=== PATIENT | female | born 1970 | race Caucasian/White ===

== ENCOUNTER → 2023-12-21 14:02 | Outpatient (REF) | payer BC, SELFPAY | LOC: WDC 14:02 | PROVIDERS: ATTENDING PHYSICIAN Physician Assistant Medical | DX: Z12.31 Encounter for screening mammogram for malignant neoplasm of breast (principal) | CPT/HCPCS: 77063; 77067 ==

== ENCOUNTER → 2024-03-22 09:25 | Outpatient (REF) | payer BC, SELFPAY | LOC: RAD 09:25 | PROVIDERS: ATTENDING PHYSICIAN Advanced Practice Midwife; FAMILY PHYSICIAN Physician Assistant Medical; REFERRING PHYSICIAN Physician Assistant Medical | DX: N92.0 Excessive and frequent menstruation with regular cycle (principal); M25.562 Pain in left knee; M25.512 Pain in left shoulder | CPT/HCPCS: 73030; 73564; 76830; 76856 ==

== ENCOUNTER → 2024-07-09 08:27 | Outpatient (REF) | payer BC, SELFPAY ==
[2024-07-09 09:26] LABS: % Basophils 0.6 % (0-2); % Eosinophils 1.9 % (0-6); % Immature Granulocytes 0.2 % (0-0.5); % Lymphocytes 28.3 % (20.5-51.1); % Monocytes 7.5 % (1.7-9.3); % Neutrophils 61.5 % (42.2-75.2); Absolute Eosinophils 0.1 10^3/uL (0-0.7); Absolute Lymphocytes 1.8 10^3/uL (1.2-3.4); Absolute Monocytes 0.5 10^3/uL (0.1-0.6); Absolute Neutrophils 3.9 10^3/uL (1.4-6.5); Hematocrit 40.3 % (37.0-47.0); Hemoglobin 13.1 g/dL (12.0-16.0); Mean Corp Hgb Conc. 32.5 g/dL (33.0-37.0); Mean Corpuscular Hgb 27.5 pg (27.0-31.0); Mean Corpuscular Volume 84.5 fL (81.0-99.0); Mean Platelet Volume 10.4 fL (7.4-10.4); Nucleated Red Blood Cells % 0 %; Platelet Count 315 10^3/uL (130-400); Red Blood Cell Count 4.77 10^6/uL (4.20-5.40); Red Cell Dist. Width 13.4 % (11.5-14.5); White Blood Cell Count 6.3 10^3/uL (4.8-10.8)
[2024-07-09 10:29] LABS: ALT (SGPT) 33 U/L (0-35); AST (SGOT) 30 U/L (14-36); Albumin 4.5 g/dl (3.5-5.0); Alkaline Phosphatase 77 U/L (38-126); Blood Urea Nitrogen 15 mg/dl (7-17); Calcium 10.3 mg/dl (8.4-10.2); Carbon Dioxide 25 mmol/L (22-30); Chloride 102 mmol/L (98-107); Glucose 135 mg/dl (70-99); HDL Cholesterol 51 mg/dl; LDL Cholesterol, Calculated 97 mg/dl; Potassium 4.4 mmol/L (3.5-5.1); Sodium 139 mmol/L (135-145); Total Bilirubin 0.5 mg/dl (0.2-1.3); Total Cholesterol 179 mg/dl (50-199); Total Protein 7.3 g/dl (6.3-8.2); Triglyceride 159 mg/dl (10-149); Very Low Density Lipoprotein 31 mg/dl (0-30); eGFR > 60.00
[2024-07-09 10:39] LABS: FSH 6.3 mIU/ml
[2024-07-09 10:53] LABS: TSH Reflex To Free T4 4.33 uIU/ml (0.47-4.68)
[2024-07-09 11:02] LABS: Glycohemoglobin (HgbA1c) 6.3 % (4.0-5.6)
[2024-07-10 23:43] LABS: Insulin, Random 61 uIU/mL
== END ==
LOC: REG 08:27
PROVIDERS: ATTENDING PHYSICIAN Physician Assistant Medical; REFERRING PHYSICIAN Advanced Practice Midwife
DX: N95.1 Menopausal and female climacteric states (principal); R73.01 Impaired fasting glucose; Z00.01 Encounter for general adult medical examination with abnormal findings; I10 Essential (primary) hypertension; E03.9 Hypothyroidism, unspecified
CPT/HCPCS: 36415; 80053; 80061; 83001; 83002; 83036; 83525; 84443; 85025

== ENCOUNTER → 2024-12-24 13:57 | Outpatient (REF) | payer BC, SELFPAY | LOC: WDC 13:57 | PROVIDERS: ATTENDING PHYSICIAN Advanced Practice Midwife; FAMILY PHYSICIAN Physician Assistant Medical | DX: Z12.31 Encounter for screening mammogram for malignant neoplasm of breast (principal) | CPT/HCPCS: 77063; 77067 ==

== ENCOUNTER → 2025-06-09 17:51 | Outpatient (REF) | payer BC, SELFPAY ==
[2025-06-14 23:51] LABS: HPV, High Risk Not Detected; HPV, High Risk Source Cervical
== END ==
LOC: CPAP 17:51
PROVIDERS: ATTENDING PHYSICIAN Advanced Practice Midwife
DX: Z01.419 Encounter for gynecological examination (general) (routine) without abnormal findings (principal); Z11.51 Encounter for screening for human papillomavirus (HPV)
CPT/HCPCS: 87624